=== PATIENT | female | born 1940 | race Hispanic/Latino ===

== ENCOUNTER 2025-02-28 20:13 | Emergency (ER) | payer MEDICARE, OTHER ==
[~2025-02-28] VITALS: Ht 152.4 cm; Wt 81.6 kg
[2025-02-28 20:28] VITALS: TEMP 98.7
[2025-02-28 20:51] VITALS: RESP 18
[2025-02-28 21:45] VITALS: PULSE 60
[2025-02-28 21:55] VITALS: BP 123/55; PULSE 60; O2SAT 96
== END 2025-02-28 21:56 | disposition home or self-care (01) ==
LOC: ER 20:30
DX: I10 Essential (primary) hypertension (principal); E11.40 Type 2 diabetes mellitus with diabetic neuropathy, unspecified; M06.9 Rheumatoid arthritis, unspecified; M19.09 Primary osteoarthritis, other specified site
CPT/HCPCS: 99282